=== PATIENT | female | born 1965 | race African-American/Black ===

== ENCOUNTER 2017-11-27 16:47 | Emergency (ER) | payer MEDICAID ==
[~2017-11-27] VITALS: Ht 147.3 cm; Wt 62.8 kg
[2017-11-27 16:51] VITALS: BP 123/72
== END 2017-11-27 18:22 | disposition home or self-care (01) ==
LOC: ED 16:47
DX: G89.29 Other chronic pain (principal); M25.521 Pain in right elbow; Z90.710 Acquired absence of both cervix and uterus